=== PATIENT | female | born 2000 | race Caucasian/White ===

== ENCOUNTER 2019-05-22 20:17 | Emergency (ER) | payer BC ==
[~2019-05-22] VITALS: Ht 154.9 cm; Wt 63.0 kg
[2019-05-22 20:44] VITALS: Ht 154.9 cm; Wt 63.0 kg
[2019-05-22 21:53] VITALS: BP 130/81
== END 2019-05-22 21:53 | disposition home or self-care (01) ==
LOC: ED 20:17
DX: R10.30 Lower abdominal pain, unspecified (principal); K64.9 Unspecified hemorrhoids; Z90.89 Acquired absence of other organs